=== PATIENT | male | born 1945 | race Caucasian/White ===

== ENCOUNTER 2017-03-02 07:36 | Day surgery (SDC) | payer OTHER, MEDICARE ==
[~2017-03-02 07:36] MED LIST: ASPIR 8181 M1 PO; CHEWABLE-VITE1 EACH PO; CLINDAMYCIN HC300 MG PO; ENALAPRIL MALEA20 MG PO; GLIPIZIDE10 MG PO; METFORMIN HCL850 MG PO; METOPROLOL TART25 MG PO; NOVOLOG MI100 UNIT/4 SC; SERTRALINE HCL100 MG PO; SIMVASTATIN80 MG PO; VITAMIN B122500 MCG PO; VITAMIN C1000 MG PO
[2017-03-02 08:18] LABS: POINT-OF-CARE METER ID UU13113696
== END 2017-03-02 09:40 | disposition home or self-care (01) ==
LOC: CATH 07:36
PROVIDERS: Surgery
DX: I87.8 Other specified disorders of veins (principal); C22.1 Intrahepatic bile duct carcinoma; I10 Essential (primary) hypertension; E11.9 Type 2 diabetes mellitus without complications; E78.00 Pure hypercholesterolemia, unspecified; Z79.4 Long term (current) use of insulin; Z79.82 Long term (current) use of aspirin; Z88.0 Allergy status to penicillin; Z88.1 Allergy status to other antibiotic agents; Z87.891 Personal history of nicotine dependence
CPT/HCPCS: 82948; C1751; C1894; J1644; J2250; J2405; J3010; S0020

== ENCOUNTER 2017-03-04 01:54 | Inpatient (IN) | payer OTHER, MEDICARE ==
[2017-03-04] VITALS (22 sets, daily range): BP systolic 72–112; BP diastolic 38–70
[~2017-03-04] VITALS: Ht 177.8 cm; Wt 96.1 kg
[2017-03-04 02:28] LABS: BASOPHIL (%) 0.1 % (0-1); EOSINOPHIL (%) 0 % (0-5); HEMATOCRIT 26.1 % (38.0-50.0); HEMOGLOBIN 8.2 G/DL (12.5-16.6); IMMATURE GRANULOCYTE (%) 0.7 % (0.0-0.7); LYMPHOCYTE (%) 4.1 % (15-42); MCH 29.9 PG (29.0-34.0); MCHC 31.4 G/DL (30.0-36.0); MCV 95.3 FL (86-99); NEUTROPHIL (%) 91.1 % (45-76); PLATELET COUNT 422 K/uL (156-360); RBC DIS.WIDTH-CV 16.9 % (11.8-14.6); RBC DIS.WIDTH-SD 58.1 % (39-53); RED BLOOD COUNT 2.74 M/uL (4.00-5.50); WHITE BLOOD COUNT 24.2 K/uL (4.1-10.2)
[2017-03-04 02:35] LABS: BASE EXCESS -13.5 mEq/L (-3 to +3); BICARBONATE 13.9 mEq/L (22-26); CARBOXY HGB 1.4 % (0-5); METHEMOGLOBIN 0.6 % (0-1.5); PCO2 38 mm Hg (35-45); PO2 484 mm Hg (80-100); pH 7.17 (7.35-7.45)
[2017-03-04 02:36] LABS: COMMENTS - BLOOD GASES C+; DEVICE VENT; FI02 100 %; MODE SPON; PEEP 5 CM/H20; PRES. SUPPORT 15 CM/H2O; SITE RR; TOTAL RESP RATE 15 resp/min
[2017-03-04 02:40] LABS: ALBUMIN 3.4 g/dL (3.2-4.8); CHLORIDE 98 mEq/L (99-109); SODIUM 125 mEq/L (136-147)
[2017-03-04 02:41] LABS: MAGNESIUM 2.4 mg/dL (1.3-2.7)
[2017-03-04 02:42] LABS: GLUCOSE 179 mg/dL (70-99)
[2017-03-04 02:43] LABS: TOTAL PROTEIN 7.4 g/dL (6.4-8.3)
[2017-03-04 02:44] LABS: TOTAL BILIRUBIN 0.3 mg/dL (0.0-1.0)
[2017-03-04 02:46] LABS: ALKALINE PHOSPHATASE 121 IU/L (3-129); CREATININE 4.6 mg/dL (0.6-1.3); GFR ESTIMATE (CALCULATED) 13 mL/min/ (58.99-99999)
[2017-03-04 02:48] LABS: AST (GOT) 28 IU/L (2-34)
[2017-03-04 02:49] LABS: ALT (GPT) 20 IU/L (3-49)
[2017-03-04 02:50] LABS: UREA NITROGEN (BUN) 102 mg/dL (9-23)
[2017-03-04 02:51] LABS: POTASSIUM 8.1 mEq/L (3.7-5.4)
[2017-03-04 02:57] LABS: TROP-I INTERPRETATION POSITIVE
[2017-03-04 02:58] LABS: TROPONIN-I 1.22 ng/mL (0.0-0.30)
[2017-03-04 04:00] LABS: BICARBONATE 13.3 mEq/L (22-26); CARBOXY HGB 1.2 % (0-5); METHEMOGLOBIN 0.6 % (0-1.5); PCO2 40 mm Hg (35-45); PO2 482 mm Hg (80-100)
[2017-03-04 04:01] LABS: COMMENTS - BLOOD GASES A+C+; DEVICE 980; FI02 100 %; MODE SPONT; PEEP 5 CM/H20; PRES. SUPPORT 15 CM/H2O; SITE LR; TOTAL RESP RATE 16 resp/min; pH 7.13 (7.35-7.45)
[2017-03-04] MEDS ORDERED: CAPECITABINE500 MG PO (05:46)
[2017-03-04] MEDS ORDERED: ROXICODONE5 MG PO (05:47)
[2017-03-04] MEDS ORDERED: ZOFRAN4 MG PO (05:48)
[2017-03-04] MEDS ORDERED: COLACE100 MG PO (05:48)
[2017-03-04 06:16] LABS: PTT 29.2 SEC (25-37)
[2017-03-04 12:00] LABS: TROP-I INTERPRETATION POSITIVE; TROPONIN-I 1.71 ng/mL (0.0-0.30)
[2017-03-04 12:39] LABS: TOTAL PROTEIN 6.4 G/DL (6.4-8.3)
[2017-03-04 12:44] LABS: BODY FLUID PROTEIN 5.1 G/DL
[2017-03-04 17:38] LABS: CHLORIDE 99 MEQ/L (99-109); CREATININE 5.2 MG/DL (0.6-1.3); GFR ESTIMATE (CALCULATED) 12 mL/min/ (58.99-99999); SODIUM 131 MEQ/L (136-147)
[2017-03-04 17:56] LABS: GLUCOSE 80 mg/dL (70-99); POTASSIUM 7.3 MEQ/L (3.7-5.4); UREA NITROGEN (BUN) 110 mg/dL (9-23)
[2017-03-04 19:23] LABS: TROP-I INTERPRETATION POSITIVE; TROPONIN-I 42.57 ng/mL (0.0-0.30)
[2017-03-05] VITALS (26 sets, daily range): BP systolic 77–124; BP diastolic 44–83
[2017-03-05 06:14] LABS: BASOPHIL (%) 0.1 % (0-1); EOSINOPHIL (%) 0.3 % (0-5); HEMATOCRIT 25.4 % (38.0-50.0); HEMOGLOBIN 8.1 G/DL (12.5-16.6); IMMATURE GRANULOCYTE (%) 0.6 % (0.0-0.7); LYMPHOCYTE (%) 4.6 % (15-42); LYMPHOCYTE COUNT 0.7 K/uL (1.0-2.8); MCH 29.1 PG (29.0-34.0); MCHC 31.9 G/DL (30.0-36.0); MCV 91.4 FL (86-99); MONOCYTE (%) 2.3 % (3-12); MONOCYTE COUNT 0.4 K/uL (0-0.8); NEUTROPHIL (%) 92.1 % (45-76); NEUTROPHIL COUNT 14.6 K/uL (1.8-6.4); RBC DIS.WIDTH-CV 17.1 % (11.8-14.6); RBC DIS.WIDTH-SD 56.2 % (39-53); RED BLOOD COUNT 2.78 M/uL (4.00-5.50); WHITE BLOOD COUNT 15.8 K/uL (4.1-10.2)
[2017-03-05 06:18] LABS: INTER. NORMALIZED RATIO 1.2
[2017-03-05 06:59] LABS: PTT 165.4 SEC (25-37)
[2017-03-05 07:17] LABS: ALBUMIN 2.5 G/DL (3.2-4.8); ALKALINE PHOSPHATASE 100 IU/L (3-129); ALT (GPT) 35 IU/L (3-49); AST (GOT) 199 IU/L (2-34); CHLORIDE 98 MEQ/L (99-109); GFR ESTIMATE (CALCULATED) 10 mL/min/ (58.99-99999); GLUCOSE 80 mg/dL (70-99); SODIUM 133 MEQ/L (136-147); TOTAL BILIRUBIN 0.3 MG/DL (0.0-1.0)
[2017-03-05 07:31] LABS: POTASSIUM 6.6 MEQ/L (3.7-5.4); TOTAL PROTEIN 5.3 G/DL (6.4-8.3); UREA NITROGEN (BUN) 112 mg/dL (9-23)
[2017-03-05 08:15] LABS: HEMATOLOGY COMMENT 1 SMEAR COMPATIBLE; PLAT.SUFFICIENCY ADEQUATE
[2017-03-05 08:19] LABS: PLATELET COUNT 262 K/uL (156-360)
[2017-03-05 12:00] LABS: VANCOMYCIN, TROUGH 13.8 MCG/ML (10-20)
[2017-03-05 13:00] LABS: INTER. NORMALIZED RATIO 1.2
[2017-03-05 13:07] LABS: PTT 77.6 SEC (25-37)
[2017-03-05 19:07] LABS: CHLORIDE 98 MEQ/L (99-109); CREATININE 6.5 MG/DL (0.6-1.3); GFR ESTIMATE (CALCULATED) 9 mL/min/ (58.99-99999); GLUCOSE 67 mg/dL (70-99); SODIUM 133 MEQ/L (136-147)
[2017-03-05 19:09] LABS: POTASSIUM 6.3 MEQ/L (3.7-5.4); UREA NITROGEN (BUN) 117 mg/dL (9-23)
[2017-03-05 19:29] LABS: INTER. NORMALIZED RATIO 1.2
[2017-03-05 19:33] LABS: PTT 50.3 SEC (25-37)
[2017-03-06] VITALS (41 sets, daily range): BP systolic 37–148; BP diastolic 31–80
[2017-03-06 00:44] LABS: BASOPHIL (%) 0.1 % (0-1); EOSINOPHIL (%) 0.1 % (0-5); HEMATOCRIT 24.9 % (38.0-50.0); HEMOGLOBIN 8.2 G/DL (12.5-16.6); LYMPHOCYTE (%) 4.9 % (15-42); LYMPHOCYTE COUNT 1.4 K/uL (1.0-2.8); MCH 29.9 PG (29.0-34.0); MCHC 32.9 G/DL (30.0-36.0); MCV 90.9 FL (86-99); MONOCYTE (%) 2.8 % (3-12); MONOCYTE COUNT 0.8 K/uL (0-0.8); NEUTROPHIL (%) 91.1 % (45-76); NEUTROPHIL COUNT 25.9 K/uL (1.8-6.4); RBC DIS.WIDTH-CV 17.3 % (11.8-14.6); RBC DIS.WIDTH-SD 56.2 % (39-53); RED BLOOD COUNT 2.74 M/uL (4.00-5.50); WHITE BLOOD COUNT 28.4 K/uL (4.1-10.2)
[2017-03-06 00:46] LABS: PLATELET COUNT 343 K/uL (156-360)
[2017-03-06 00:54] LABS: ALBUMIN 2.4 g/dL (3.2-4.8); CHLORIDE 102 mEq/L (99-109); POTASSIUM 5.3 mEq/L (3.7-5.4); SODIUM 134 mEq/L (136-147)
[2017-03-06 01:00] LABS: PHOSPHORUS 6.9 mg/dL (2.5-4.9)
[2017-03-06 01:01] LABS: UREA NITROGEN (BUN) 89 mg/dL (9-23)
[2017-03-06 01:25] LABS: CREATININE 4.8 mg/dL (0.6-1.3); GFR ESTIMATE (CALCULATED) 13 mL/min/ (58.99-99999); GLUCOSE 129 mg/dL (70-99); MAGNESIUM 1.8 mg/dL (1.3-2.7)
[2017-03-06 06:37] LABS: ALBUMIN 2.4 G/DL (3.2-4.8); ALKALINE PHOSPHATASE 104 IU/L (3-129); ALT (GPT) 28 IU/L (3-49); AST (GOT) 88 IU/L (2-34); CHLORIDE 102 MEQ/L (99-109); CREATININE 3.2 MG/DL (0.6-1.3); CREATININE 3.4 MG/DL (0.6-1.3); GFR ESTIMATE (CALCULATED) 19 mL/min/ (58.99-99999); GFR ESTIMATE (CALCULATED) 21 mL/min/ (58.99-99999); GLUCOSE 161 mg/dL (70-99); GLUCOSE 163 mg/dL (70-99); PHOSPHORUS 6.5 mg/dL (2.5-4.9); SODIUM 135 MEQ/L (136-147); SODIUM 136 MEQ/L (136-147); TOTAL BILIRUBIN 0.4 MG/DL (0.0-1.0); TOTAL PROTEIN 5.5 G/DL (6.4-8.3); UREA NITROGEN (BUN) 74 mg/dL (9-23); URIC ACID 6.9 mg/dL (3.1-9.2)
[2017-03-06 06:55] LABS: BASOPHIL (%) 0.1 % (0-1); EOSINOPHIL (%) 0 % (0-5); HEMATOCRIT 23.2 % (38.0-50.0); HEMOGLOBIN 7.7 G/DL (12.5-16.6); IMMATURE GRANULOCYTE (%) 1.2 % (0.0-0.7); LYMPHOCYTE (%) 2.6 % (15-42); LYMPHOCYTE COUNT 0.6 K/uL (1.0-2.8); MCH 30.7 PG (29.0-34.0); MCHC 33.2 G/DL (30.0-36.0); MCV 92.4 FL (86-99); MONOCYTE COUNT 0.5 K/uL (0-0.8); NEUTROPHIL (%) 94.1 % (45-76); NEUTROPHIL COUNT 23.1 K/uL (1.8-6.4); PLATELET COUNT 330 K/uL (156-360); RBC DIS.WIDTH-CV 17.2 % (11.8-14.6); RBC DIS.WIDTH-SD 57.2 % (39-53); RED BLOOD COUNT 2.51 M/uL (4.00-5.50); WHITE BLOOD COUNT 24.6 K/uL (4.1-10.2)
[2017-03-06 12:06] LABS: BASOPHIL (%) 0.1 % (0-1); EOSINOPHIL (%) 0.1 % (0-5); HEMATOCRIT 24.1 % (38.0-50.0); HEMOGLOBIN 7.6 G/DL (12.5-16.6); IMMATURE GRANULOCYTE (%) 0.5 % (0.0-0.7); LYMPHOCYTE (%) 3.4 % (15-42); LYMPHOCYTE COUNT 0.8 K/uL (1.0-2.8); MCH 29.1 PG (29.0-34.0); MCHC 31.5 G/DL (30.0-36.0); MCV 92.3 FL (86-99); MONOCYTE COUNT 0.4 K/uL (0-0.8); NEUTROPHIL (%) 93.9 % (45-76); PLATELET COUNT 295 K/uL (156-360); RBC DIS.WIDTH-CV 17.2 % (11.8-14.6); RBC DIS.WIDTH-SD 57.4 % (39-53); RED BLOOD COUNT 2.61 M/uL (4.00-5.50); WHITE BLOOD COUNT 22.3 K/uL (4.1-10.2)
[2017-03-06 12:35] LABS: ALBUMIN 2.3 G/DL (3.2-4.8); CHLORIDE 103 MEQ/L (99-109); GFR ESTIMATE (CALCULATED) 26 mL/min/ (58.99-99999); GLUCOSE 148 mg/dL (70-99); MAGNESIUM 2.1 mg/dl (1.3-2.7); PHOSPHORUS 5.6 mg/dL (2.5-4.9); POTASSIUM 5.1 MEQ/L (3.7-5.4); SODIUM 136 MEQ/L (136-147); UREA NITROGEN (BUN) 55 mg/dL (9-23)
[2017-03-06 12:36] LABS: CREATININE 2.6 MG/DL (0.6-1.3)
[2017-03-06 18:49] LABS: ALBUMIN 2.5 G/DL (3.2-4.8); CHLORIDE 101 MEQ/L (99-109); GFR ESTIMATE (CALCULATED) 35 mL/min/ (58.99-99999); GLUCOSE 219 mg/dL (70-99); PHOSPHORUS 4.9 mg/dL (2.5-4.9); POTASSIUM 4.9 MEQ/L (3.7-5.4); SODIUM 134 MEQ/L (136-147); UREA NITROGEN (BUN) 44 mg/dL (9-23)
[2017-03-07] VITALS (23 sets, daily range): BP systolic 86–124; BP diastolic 45–75
[2017-03-07 00:44] LABS: BASOPHIL (%) 0.1 % (0-1); EOSINOPHIL (%) 0.4 % (0-5); EOSINOPHIL COUNT 0.1 K/uL (0-0.3); HEMATOCRIT 26.5 % (38.0-50.0); HEMOGLOBIN 8.8 G/DL (12.5-16.6); IMMATURE GRANULOCYTE (%) 0.6 % (0.0-0.7); LYMPHOCYTE (%) 3.3 % (15-42); LYMPHOCYTE COUNT 0.5 K/uL (1.0-2.8); MCH 29.8 PG (29.0-34.0); MCHC 33.2 G/DL (30.0-36.0); MCV 89.8 FL (86-99); MONOCYTE (%) 2.2 % (3-12); MONOCYTE COUNT 0.4 K/uL (0-0.8); NEUTROPHIL (%) 93.4 % (45-76); NEUTROPHIL COUNT 14.7 K/uL (1.8-6.4); PLATELET COUNT 226 K/uL (156-360); RBC DIS.WIDTH-CV 16.7 % (11.8-14.6); RBC DIS.WIDTH-SD 53.4 % (39-53); RED BLOOD COUNT 2.95 M/uL (4.00-5.50); WHITE BLOOD COUNT 15.8 K/uL (4.1-10.2)
[2017-03-07 00:52] LABS: ALBUMIN 2.3 g/dL (3.2-4.8); CHLORIDE 103 mEq/L (99-109); POTASSIUM 4.8 mEq/L (3.7-5.4); SODIUM 136 mEq/L (136-147)
[2017-03-07 00:55] LABS: GLUCOSE 186 mg/dL (70-99)
[2017-03-07 00:59] LABS: UREA NITROGEN (BUN) 33 mg/dL (9-23)
[2017-03-07 01:07] LABS: CREATININE 1.5 mg/dL (0.6-1.3); GFR ESTIMATE (CALCULATED) 49 mL/min/ (58.99-99999); PHOSPHORUS 3.4 mg/dL (2.5-4.9)
[2017-03-07 07:01] LABS: ALBUMIN 2.1 G/DL (3.2-4.8); CHLORIDE 104 MEQ/L (99-109); CREATININE 1.4 MG/DL (0.6-1.3); GFR ESTIMATE (CALCULATED) 53 mL/min/ (58.99-99999); GLUCOSE 155 mg/dL (70-99); POTASSIUM 4.8 MEQ/L (3.7-5.4); SODIUM 137 MEQ/L (136-147); UREA NITROGEN (BUN) 31 mg/dL (9-23)
[2017-03-07 07:02] LABS: PHOSPHORUS 2.9 mg/dL (2.5-4.9)
[2017-03-07 14:13] LABS: BASOPHIL (%) 0.1 % (0-1); EOSINOPHIL COUNT 0.1 K/uL (0-0.3); HEMATOCRIT 23.6 % (38.0-50.0); HEMOGLOBIN 7.6 G/DL (12.5-16.6); IMMATURE GRANULOCYTE (%) 0.4 % (0.0-0.7); LYMPHOCYTE (%) 3.8 % (15-42); LYMPHOCYTE COUNT 0.4 K/uL (1.0-2.8); MCH 29.8 PG (29.0-34.0); MCHC 32.2 G/DL (30.0-36.0); MCV 92.5 FL (86-99); MONOCYTE (%) 2.1 % (3-12); MONOCYTE COUNT 0.2 K/uL (0-0.8); NEUTROPHIL (%) 92.6 % (45-76); NEUTROPHIL COUNT 10.7 K/uL (1.8-6.4); PLATELET COUNT 193 K/uL (156-360); RBC DIS.WIDTH-CV 16.7 % (11.8-14.6); RBC DIS.WIDTH-SD 54.5 % (39-53); RED BLOOD COUNT 2.55 M/uL (4.00-5.50); WHITE BLOOD COUNT 11.6 K/uL (4.1-10.2)
[2017-03-07 14:33] LABS: ALBUMIN 2.2 G/DL (3.2-4.8); CHLORIDE 102 MEQ/L (99-109); CREATININE 1.7 MG/DL (0.6-1.3); GFR ESTIMATE (CALCULATED) 43 mL/min/ (58.99-99999); GLUCOSE 185 mg/dL (70-99); MAGNESIUM 2.2 mg/dl (1.3-2.7); PHOSPHORUS 3.3 mg/dL (2.5-4.9); POTASSIUM 4.8 MEQ/L (3.7-5.4); SODIUM 135 MEQ/L (136-147); UREA NITROGEN (BUN) 34 mg/dL (9-23)
[2017-03-08] VITALS (12 sets, daily range): BP systolic 105–124; BP diastolic 60–71
[2017-03-08] MEDS ORDERED: ATIVAN1 MG PO (12:21)
[2017-03-08] MEDS ORDERED: ANASPAZ0.125 MG PO (12:22)
[2017-03-08] MEDS ORDERED: MORPHINE CON20 MG/M1 PO (12:24)
[2017-03-08] MEDS ORDERED: NOVOLOG 10100 UNITS/ SC (12:44)
[2017-03-15] MEDS ORDERED: NOVOLIN,HU100 UNITS/ SC (13:01)
== END 2017-03-08 14:58 | disposition home or self-care (01) | DRG 871 ==
LOC: EME → EDBD 01:54 → EME 01:54 → EDOF 02:53 → 4WEST 02:53 → ENRESERV 02:54 → 4WEST 04:25
PROVIDERS: Emergency Medicine; Internal Medicine Critical Care Medicine; Internal Medicine Nephrology; Specialist
PROC: 30233N1 Transfusion of Nonautologous Red Blood Cells into Peripheral Vein, Percutaneous Approach (ICD-10-PCS; principal; 2017-03-04)
PROC: 0W9B30Z Drainage of Left Pleural Cavity with Drainage Device, Percutaneous Approach (ICD-10-PCS; principal; 2017-03-04)
PROC: 02HV33Z Insertion of Infusion Device into Superior Vena Cava, Percutaneous Approach (ICD-10-PCS; principal; 2017-03-04)
PROC: 5A09357 Assistance with Respiratory Ventilation, Less than 24 Consecutive Hours, Continuous Positive Airway Pressure (ICD-10-PCS; principal; 2017-03-04)
PROC: 5A1D70Z Performance of Urinary Filtration, Intermittent, Less than 6 Hours Per Day (ICD-10-PCS; 2017-03-06)
DX: A41.9 Sepsis, unspecified organism (principal); J96.01 Acute respiratory failure with hypoxia; I21.4 Non-ST elevation (NSTEMI) myocardial infarction; N17.0 Acute kidney failure with tubular necrosis; J90 Pleural effusion, not elsewhere classified; J91.0 Malignant pleural effusion; G93.40 Encephalopathy, unspecified; J18.9 Pneumonia, unspecified organism; I48.91 Unspecified atrial fibrillation; E83.51 Hypocalcemia; E87.2 Acidosis; C79.51 Secondary malignant neoplasm of bone; C78.00 Secondary malignant neoplasm of unspecified lung; E87.5 Hyperkalemia; R65.20 Severe sepsis without septic shock; E66.9 Obesity, unspecified; E87.6 Hypokalemia; J98.11 Atelectasis; Z51.5 Encounter for palliative care; D64.9 Anemia, unspecified; R00.1 Bradycardia, unspecified; C22.1 Intrahepatic bile duct carcinoma; Z85.05 Personal history of malignant neoplasm of liver; Z87.891 Personal history of nicotine dependence; Z92.21 Personal history of antineoplastic chemotherapy; Z88.0 Allergy status to penicillin; Z88.8 Allergy status to other drugs, medicaments and biological substances; Z68.30 Body mass index [BMI] 30.0-30.9, adult
CPT/HCPCS: 36415; 36600; 71010; 71250; 76770; 80047; 80048 91; 80053; 80069; 80202; 82803; 82948; 83605; 83615; 83615 91; 83735; 83880; 84100; 84155; 84157; 84484; 84550; 84999; 85025; 85025 91; 85027; 85610; 85730; 86850; 86900; 86901; 86920; 87040; 87070; 87075; 87205; 87641; 88108; 88305; 88341 TC; 88342 TC; 93005; 94002; 94003; 94010; 94640; 94640 76; 94760; 94799; 96367; 96375; 96413; 96415; 99202; 99281; 99285; C1751; C1894; G0463 25; J0461; J0610; J0692; J1100; J1265; J1453; J1644; J1815; J2060; J2250; J2270; J2405; J2469; J3010; J3370; J7030; J7040; J7050; J7070; J9263; P9016; S0020; S0028

== ENCOUNTER → 2017-03-14 | Outpatient (CLI) | payer OTHER, MEDICARE ==
[~2017-03-14] MED LIST changes: +ANASPAZ0.125 MG PO; +ATIVAN1 MG PO; +CAPECITABINE500 MG PO; +COLACE100 MG PO; +MORPHINE CON20 MG/M1 PO; +NOVOLIN,HU100 UNITS/ SC; +NOVOLOG 10100 UNITS/ SC; +ROXICODONE5 MG PO; +ZOFRAN4 MG PO
== END | disposition home or self-care (01) ==
LOC: RAD 14:09 → EDSTATUS 14:30 → RAD 14:30
PROC: 0W9B3ZZ Drainage of Left Pleural Cavity, Percutaneous Approach (ICD-10-PCS; principal; 2017-03-14)
DX: J90 Pleural effusion, not elsewhere classified (principal); C22.1 Intrahepatic bile duct carcinoma
CPT/HCPCS: 76942

== ENCOUNTER → 2017-03-20 | Outpatient (CLI) | payer OTHER, MEDICARE | END | disposition home or self-care (01) | LOC: OPR 07:54 → EDSTATUS 08:00 | PROVIDERS: Internal Medicine | PROC: 0W9B30Z Drainage of Left Pleural Cavity with Drainage Device, Percutaneous Approach (ICD-10-PCS; principal; 2017-03-20) | DX: J90 Pleural effusion, not elsewhere classified (principal); C22.1 Intrahepatic bile duct carcinoma; C78.7 Secondary malignant neoplasm of liver and intrahepatic bile duct; N17.9 Acute kidney failure, unspecified; F41.9 Anxiety disorder, unspecified; I10 Essential (primary) hypertension; E11.9 Type 2 diabetes mellitus without complications; E78.00 Pure hypercholesterolemia, unspecified; E66.01 Morbid (severe) obesity due to excess calories; Z87.891 Personal history of nicotine dependence; Z79.4 Long term (current) use of insulin; Z88.0 Allergy status to penicillin | CPT/HCPCS: 32557; 82948; C1729; J3010 ==

== ENCOUNTER 2017-03-28 00:51 | Emergency (ER) | payer OTHER, MEDICARE ==
[~2017-03-28] VITALS: Ht 177.8 cm; Wt 92.2 kg
[2017-03-28 00:54] VITALS: BP 117/66
== END 2017-03-28 01:23 | disposition left against medical advice (07) ==
LOC: EME 00:51
DX: R11.2 Nausea with vomiting, unspecified (principal); Z53.21 Procedure and treatment not carried out due to patient leaving prior to being seen by health care provider